=== PATIENT | male | born 1955 | race Caucasian/White ===

== ENCOUNTER 2019-03-28 16:06 | Emergency (ER) | payer BC ==
[~2019-03-28] VITALS: Ht 177.8 cm; Wt 100.0 kg
--- NOTE | 2019-03-28 17:14 | NUR ---
TALKED TO DR. JERONIMO, SAID HE WOULD LIKE TO ASSESS THE PT. BEFORE ORDERING A CT SCAN.
[2019-03-28] MEDS ORDERED: metoclopramide 5 mg/ml inj IM ONE (17:30)
[2019-03-28] MEDS ORDERED: diphenhydrAMINE 50 mg/ml inj IM ONE (17:30)
[2019-03-28] MEDS ORDERED: metoprolol tartrate 50mg tablet PO ONE (17:30)
[2019-03-28 18:26] VITALS: BP 181/117
[2019-03-28] MEDS ORDERED: IBUP-1985 PO (18:47)
== END 2019-03-28 19:03 | disposition home or self-care (01) ==
LOC: ER 16:07
DX: M54.2 Cervicalgia (principal); I10 Essential (primary) hypertension; G43.909 Migraine, unspecified, not intractable, without status migrainosus; Z79.899 Other long term (current) drug therapy; V89.2XXA Person injured in unspecified motor-vehicle accident, traffic, initial encounter; Y93.89 Activity, other specified; Y92.488 Other paved roadways as the place of occurrence of the external cause; Y99.8 Other external cause status
CPT/HCPCS: 70450; 71045; 72125; 96372; 99284; J1200; J2765